=== PATIENT | male | born 1980 | race American Indian/Alaskan Native ===

== ENCOUNTER 2018-04-09 07:22 | Emergency (ER) | payer OTHER ==
[2018-04-09 07:23] VITALS: BMI 19.2
[2018-04-09 07:39] VITALS: O2SAT 99
--- NOTE | 2018-04-09 07:59 | ED PDOC ---
Arrival/HPI - General Historian: Patient - History of Present Illness Narrative History of Present Illness (Text): 04/09/18 08:01 38 y o male Past medical history Hypertension presents to the emergency department complaining of elevated blood pressure and s/p fall/possible syncopal episode. 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 Admitted to intermittent blurry vision during time as well which lasted for several minutes and resolved on own. Pt states he felt this symptom last time when he had elevated blood pressure and was concerned that it might be elevated again. Pt was also told by fellow co-workers that he fell and had abrasion lateral to R orbit that was bleeding. Pt states that he does not remember falling or hitting his head, questionable loss of consciousness. Pt states that prior to that episode he was pushing and pulling bins at his work place. Denies headache, dizziness, chest pain, shortness of breath, n/v/d/c, abd pain, urinary complaints, or other symptoms. States he did not take his am dose of Hypertension med today. Past medical history: Hypertension PSurgHx: cardiac catheterization 8-9 y ago for intermittent chest pain (pt states he was not told the etiology of his symptoms by his doctor at the time) Allergies: shellfish, IV contrast Home meds: Losartan 50 mg daily Fam hx: Mom and Dad with Hypertension Soc hx: admits to smoking 1 ppd for 20+ years; denies EtOH or illicit drug use; unknown last tetanus vaccine PMD: Dr. Arenas Time/Duration: Prior to Arrival Symptom Onset: Sudden Symptom Course: Improving Quality: Unable to Describe Context: Work <Lester Martell - Last Filed: 04/09/18 08:00> <Trevon Watt - Last Filed: 04/09/18 08:24> - General Chief Complaint: Trauma Time Seen by Provider: 04/09/18 07:35 Past Medical History - Provider Review Nursing Documentation Reviewed: Yes - Travel History Have you recently traveled outside [place] w/in the past 3 mons?: No - Past History Past History: No Previous - Infectious Disease Hx of Infectious Diseases: None - Tetanus Immunization Tetanus Immunization: Unknown - Past Medical History Past Medical History: No Previous - Cardiac Hx Cardiac Disorders: No Hx Hypertension: Yes - Pulmonary Hx Respiratory Disorders: Yes Hx Bronchitis: Yes - Neurological Hx Neurological Disorder: No - HEENT Hx HEENT Disorder: No - Renal Hx Renal Disorder: No - Endocrine/Metabolic Hx Endocrine Disorders: No - Hematological/Oncological Hx Blood Disorders: No - Integumentary Hx Dermatological Disorder: No - Musculoskeletal/Rheumatological Hx Musculoskeletal Disorders: No Hx Falls: No - Gastrointestinal Hx Gastrointestinal Disorders: Yes Hx Gastroesophageal Reflux: Yes - Genitourinary/Gynecological Hx Genitourinary Disorders: No - Psychiatric Hx Psychophysiologic Disorder: No Hx Depression: No Hx Emotional Abuse: No Hx Physical Abuse: No Hx Substance Use: No - Past Surgical History Past Surgical History: No Previous - Surgical History Hx Cardiac Catheterization: Yes (2012) - Anesthesia Hx Anesthesia: Yes Hx Anesthesia Reactions: No Hx Malignant Hyperthermia: No - Suicidal Assessment Feels Threatened In Home Enviroment: No <Lester Martell - Last Filed: 04/09/18 08:00> Family/Social History - Physician Review Nursing Documentation Reviewed: Yes Family/Social History: Hypertension Smoking Status: Light Smoker < 10 Cigarettes Daily Hx Alcohol Use: No Hx Substance Use: No Hx Substance Use Treatment: No <Lester Martell - Last Filed: 04/09/18 08:00> Allergies/Home Meds <Lester Martell - Last Filed: 04/09/18 08:00> <Trevon Watt - Last Filed: 04/09/18 08:24> Allergies/Adverse Reactions: Allergies iodine Allergy (Verified 02/07/16 09:41) RASH shellfish derived Allergy (Verified 02/07/16 09:41) RASH oranges Allergy (Severe, Uncoded 04/03/15 12:13) RASH Home Medications: Home Meds Medication Instructions Recorded Confirmed Losartan [Cozaar] 50 mg PO DAILY 04/09/18 04/09/18 Review of Systems - Physician Review All systems were reviewed & negative as marked: Yes - Review of Systems Eyes: absent: Vision Changes Respiratory: absent: SOB Cardiovascular: Syncope. absent: Chest Pain, Palpitations, Edema, BETTENCOURT Gastrointestinal: absent: Abdominal Pain, Nausea, Vomiting Neurological: absent: Headache, Dizziness, Focal Weakness, Gait Changes <Lester Martell - Last Filed: 04/09/18 08:00> Physical Exam Vital Signs Reviewed: Yes Vital Signs Temp Pulse Resp BP Pulse Ox 04/09/18 07:34 98.2 F 85 19 127/87 99 Temperature: Afebrile Blood Pressure: Normal Pulse: Regular Respiratory Rate: Normal Appearance: Positive for: Well-Appearing, Non-Toxic, Comfortable Pain Distress: None Mental Status: Positive for: Alert and Oriented X 3 - Systems Exam Head: Present: Normocephalic, Abrasion (Noted to skin lateral to R orbit, no active bleeding noted) Pupils: Present: PERRL Extroacular Muscles: Present: EOMI Conjunctiva: Present: Normal Mouth: Present: Moist Mucous Membranes Neck: Present: Normal Range of Motion. No: JVD, Lymphadenopathy, Bruit Respiratory/Chest: Present: Clear to Auscultation, Good Air Exchange. No: Respiratory Distress, Accessory Muscle Use, Wheezes, Rales, Rhonchi Cardiovascular: Present: Regular Rate and Rhythm, Normal S1, S2. No: Murmurs, Rub, Gallop Abdomen: Present: Normal Bowel Sounds. No: Tenderness, Distention, Mass/Organomegaly Upper Extremity: Present: Normal Inspection, Normal ROM, NORMAL PULSES, Neurovascularly Intact, Capillary Refill < 2s, Norm 2-Pt Discrimination. No: Cyanosis, Edema, Temperature Abnormalties Lower Extremity: Present: Normal Inspection, NORMAL PULSES, Normal ROM, Neurovascularly Intact, Capillary Refill < 2 s. No: Edema, CALF TENDERNESS, Temperature Abnormalties Neurological: Present: GCS=15, CN II-XII Intact, Speech Normal, Motor Func Grossly Intact, Normal Sensory Function, Normal Cerebellar Funct, Norm Deep Tendon Reflexes, Gait Normal, Memory Normal, Normal 2Pt Descrimination Skin: Present: Warm, Dry, Normal Color, Abrasion (Noted lateral to R orbit, no active bleeding). No: Rashes Psychiatric: Present: Alert, Oriented x 3, Normal Insight, Normal Concentration <Lester Martell - Last Filed: 04/09/18 08:00> Vital Signs Temp Pulse Resp BP Pulse Ox 04/09/18 07:34 98.2 F 85 19 127/87 99 <Trevon Watt - Last Filed: 04/09/18 08:24> Medical Decision Making ED Course and Treatment: 04/09/18 08:16 38 y o male Past medical history Hypertension presenting to the emergency department complaining of elevated blood pressure and status post fall/possible syncopal episode. After discussion with pt, pt states he does not wish to stay in the emergency department for further work-up and wants to leave against medical advice. Risks and benefits of further work-up and treatment were discussed with pt; all questions and concerns addressed with pt at bedside. AMA forms signed at bedside. Instructed to return to the emergency department if he changes his mind or if his symptoms recur or worsen. <Lester Martell - Last Filed: 04/09/18 08:00> ED Course and Treatment: 04/09/18 07:59 Leaving Against Medical Advice (AMA): The patient is choosing to leave against medical advice. I have personally explained to the patient that choosing to do so may result in permanent bodily harm or . I have discussed at great length that without further evaluation and monitoring there may be unforeseen circumstances and/or deterioration causing permanent bodily harm or as a result of their choice. The patient is alert, oriented, and shows the mental capacity to make clear decisions regarding the patients health care at this time. The patient continues to wish to leave against medical advice. In light of the patients decision to leave against medical advice, follow-up has been arranged and the patient is aware of the importance to following up as instructed. The patient has been advised that they should return to the emergency room immediately if they change their mind at any time, or if their condition begins to change or worsen in any way. 04/09/18 08:23 pt seen with resident. pt s/p fall, ?syncope, staets "may have slipped" but unsure. reports "waking up next to coworkers". in er, mild contusion to right face, otherwise neuro intact, offered ct and imaging, and labs, ekg. declines all w/u. states "he doesn't think he needs it". explained extensively at bedside of risk. pt agrees to return with worsening. signs AMA <Trevon Watt - Last Filed: 04/09/18 08:24> Disposition/Present on Arrival - Present on Arrival Any Indicators Present on Arrival: No History of DVT/PE: No History of Uncontrolled Diabetes: No Urinary Catheter: No History of Decub. Ulcer: No History Surgical Site Infection Following: None - Disposition Have Diagnosis and Disposition been Completed?: Yes Disposition Time: 08:21 <Lester Martell - Last Filed: 04/09/18 08:00> <Trevon Watt - Last Filed: 04/09/18 08:24> - Disposition Diagnosis: Fall, Head injury, Left against medical advice Disposition: AGAINST MEDICAL ADVICE Condition: STABLE Discharge Instructions (ExitCare): Syncope (Fainting), Minor Head Injury, Leaving Against Medical Advice Additional Instructions: return to er with worsening symptoms or concerns. Referrals: Nirav Hedrick MD [Staff Provider] - Follow up with primary Forms: [employer] (Salvadorean), WORK NOTE
[2018-04-09] MEDS ORDERED: TDAP Vaccine 0.5 mL Syr IM ONE (08:09)
[2018-04-09 08:11] VITALS: BP 110/73; PULSE 75; RESP 18; TEMP 98.1
== END 2018-04-09 08:05 | disposition left against medical advice (07) ==
LOC: ED 07:22
DX: S09.90XA Unspecified injury of head, initial encounter (principal); W19.XXXA Unspecified fall, initial encounter; I10 Essential (primary) hypertension; F17.210 Nicotine dependence, cigarettes, uncomplicated; Z23 Encounter for immunization